=== PATIENT | female | born 1985 | race Caucasian/White ===

== ENCOUNTER 2024-05-09 03:46 | Emergency (ER) | payer MEDICAID, OTHER ==
[~2024-05-09] VITALS: Ht 160 cm; Wt 100.0 kg
[2024-05-09 04:02] VITALS: TEMP 97.8; O2SAT 100
[2024-05-09 07:57] LABS: CLARITY URINE CLEAR (CLEAR); COLOR URINE YELLOW (YELLOW); GLUCOSE URINE NEGATIVE (NEGATIVE); KETONES URINE NEGATIVE (NEGATIVE); LEUKOCYTE ESTERASE URINE 2+ (NEGATIVE); NITRITE URINE NEGATIVE (NEGATIVE); OCCULT BLOOD URINE 3+ (NEGATIVE); PH URINE 6.5 (4.5-8.0); PROTEIN URINE NEGATIVE (NEGATIVE); SPECIFIC GRAVITY URINE 1.017 (1.005-1.030); UROBILINOGEN URINE 0.2 E.U./dL (0.2-1.0)
[2024-05-09 08:07] LABS: BACTERIA URINE 1+; SQUAMOUS EPITHELIAL CELL URINE 1+ /lpf (RARE/1+); YEAST URINE NONE SEEN
[2024-05-09] MEDS ORDERED: METH-653 MT (08:30)
[2024-05-09] MEDS ORDERED: CEFP200T13 MT (08:30)
[2024-05-09] MEDS ORDERED: LIDO700A15 TP (08:30)
[2024-05-09] MEDS ORDERED: IBUP-2028 MT (08:30)
[2024-05-09] MEDS: METHOCARBAMOL 750MG TABLET PO SCH (09:27)
[2024-05-09] MEDS: CEFTRIAXONE SODIUM 1G VIAL IM ONE (09:35)
[2024-05-09] MEDS: LIDOCAINE HCL 1% 20ML VIAL INFIL ONE (09:35)
[2024-05-09 10:27] VITALS: BP 149/83; PULSE 78; RESP 20
[2024-05-09] MEDS: LIDOCAINE 5% PATCH TOP STA (10:27)
[2024-05-09] MEDS: KETOROLAC 30MG/ML VIAL IM ONE (10:27)
== END 2024-05-09 10:41 | disposition home or self-care (01) ==
LOC: ER 04:17
DX: N39.0 Urinary tract infection, site not specified (principal); M51.36 Other intervertebral disc degeneration, lumbar region; K80.20 Calculus of gallbladder without cholecystitis without obstruction; Z88.6 Allergy status to analgesic agent; Z79.899 Other long term (current) drug therapy
CPT/HCPCS: 99284; 81003; 72100; 72220; 96372; J0696; J1885; J3490